=== PATIENT | female | born 1990 | race Two or more races ===

== ENCOUNTER → 2024-11-29 | Emergency (ER) | payer OTHER ==
[~2024-11-29] VITALS: Ht 167.6 cm; Wt 79.4 kg
[~2024-11-29] MED LIST: ELVITEG/COB/EMTRI/TENOFO DISOP 1 UDTAB TABLET PO ONE; ELVITEG/COB/EMTRI/TENOFO DISOP 1 UDTAB TABLET PO STA
== END | disposition home or self-care (01) ==
LOC: ER 18:03
DX: S61.248A Puncture wound with foreign body of other finger without damage to nail, initial encounter (principal); Y93.F9 Activity, other caregiving; Y92.230 Patient room in hospital as the place of occurrence of the external cause; Z88.0 Allergy status to penicillin

== ENCOUNTER 2025-09-02 14:00 | Outpatient (CLI) | payer OTHER | END 2025-09-02 14:10 | disposition home or self-care (01) | LOC: PPH VACUNA 14:00 | PROVIDERS: ATTEND Emergency Medicine Pediatric Emergency Medicine | DX: Z23 Encounter for immunization (principal) ==